=== PATIENT | male | born 1955 | race Caucasian/White ===

== ENCOUNTER 2019-05-25 01:51 | Emergency (ER) | payer OTHER ==
[~2019-05-25] VITALS: Ht 172.7 cm; Wt 70.3 kg
[2019-05-25 02:05] VITALS: BP 122/82
[2019-05-25] MEDS ORDERED: BACTRIM DS TAB1 EAC1 ORAL (02:39)
[2019-05-25] MEDS ORDERED: HYDROCODON-ACE1 EA15 ORAL (02:39)
--- NOTE | 2019-05-25 02:39 | Emergency Room Report ---
History of Present Illness General Chief Complaint: General Complaint Source: Patient Present Illness HPI Is a 64-year-old male who is right-hand dominant. He presents with chief complaint of right finger swelling and injury. He was working the garden yesterday. He said that something may have bitten him or he stuck on something. He noticed a small blister to the dorsum of his right ring finger. Today got more swollen he went to urgent care. He was placed on Keflex. They try to get the ring out but it was unsuccessful. He was told to go the ER because urgent care did not have any ring cutter. Patient did go to the ER. He took his antibiotics. He woke up tonight fingers more swollen and more blistering. No purulent discharge. Denies any fever chills. Pain is 8 out of 10. Worse with movement. No other complaint. Allergies: Coded Allergies: No Known Allergies (Unverified , 05/25/19) Patient History Past Medical History: see triage record, old chart reviewed Past Surgical History: none Pertinent Family History: none Social History: Denies: smoking Immunizations: other Reviewed Nursing Documentation: PMH: Agreed; PSxH: Agreed Nursing Documentation-PM Past Medical History: No Stated History Review of Systems Eye: Denies: eye pain, blurred vision ENT: Denies: ear pain, nose congestion, throat swelling Respiratory: Denies: cough, shortness of breath Cardiovascular: Denies: chest pain, palpitations Gastrointestinal: Denies: abdominal pain, diarrhea, nausea, vomiting Musculoskeletal: Reports: joint swelling; Denies: back pain, joint pain Skin: Denies: rash Neurological: Denies: headache, numbness Endocrine: Denies: increased thirst, increased urine Hematologic/Lymphatic: Denies: easy bruising All Other Systems: negative except mentioned in HPI Physical Exam Vital Signs Date Time Temp Pulse Resp B/P (MAP) Pulse Ox O2 Delivery O2 Flow Rate FiO2 05/25/19 01:58 98.1 84 16 125/82 (96) 98 Room Air 05/25/19 02:05 98 Vitals normal Sp02 EP Interpretation: reviewed, normal General Appearance: well appearing, no apparent distress, alert Head: normocephalic, atraumatic Eyes: bilateral eye PERRL, bilateral eye EOMI ENT: hearing grossly normal, normal pharynx Neck: full range of motion, supple, no meningismus Respiratory: chest non-tender, lungs clear, normal breath sounds Cardiovascular #1: regular rate, rhythm, no murmur Gastrointestinal: normal bowel sounds, non tender, no mass, no organomegaly, no bruit, non-distended Musculoskeletal: back normal, normal range of motion, gait/station normal, swelling - Right ring finger: On the proximal phalanx there is a small blood blister and ecchymosis and swelling. It extend to that PIP joint. He has full range of motion of the PIP joint and DIP joint. Sensation normal. Psychiatric: mood/affect normal Procedures Additional Procedure Procedure Narrative Procedure: Foreign body removal Indication: Stricture of finger from ring Description: With a ring cutter, I cut the 2 edges of the ring. Was able to remove the ring without any problem. Patient told procedure without any problem. No complication. Medical Decision Making Diagnostic Impression: Primary Impression: Cellulitis of finger of right hand ER Course Patient presents with swelling in cellulitis of his right ring finger. Because of the infection it caused soft tissue swelling causing stricture from the ring. This may be MRSA. I will add Bactrim to his regimen. No evidence of necrotizing fasciitis or deep abscess wound culture sent. Last Vital Signs Date Time Temp Pulse Resp B/P (MAP) Pulse Ox O2 Delivery O2 Flow Rate FiO2 05/25/19 02:05 81 18 Room Air 98 05/25/19 02:05 98.1 122/82 98 Status: improved Disposition: HOME, SELF-CARE Condition: Stable Scripts Hydrocodone/Acetaminophen 5-325* (HYDROCODONE/ACETAMINOPHEN 5-325*) 1 Each Tablet 1 TAB ORAL Q6H PRN for For Pain, #15 TAB 0 Refills Prov: Sebastien Hinkle MD 05/25/19 Trimethoprim/Sulfamethoxazole 160/800* (BACTRIM DS TABLET*) 1 Each Tablet 1 TAB ORAL Q12H, #14 TAB 0 Refills Prov: Sebastien Hinkle MD 05/25/19 Additional Instructions: Continue with your antibiotics. Take Bactrim in addition to your Keflex. Elevate hand. Ice pack to the area. Follow-up with your doctor in 2 3 days for recheck. Return if symptoms worsen. Sebastien Hinkle MD May 25, 2019 02:39
[2019-05-25] MEDS ORDERED: Clindamycin 900mg 50 ML IVPB ONE (02:45)
[2019-05-25] MEDS ORDERED: HYDROcodone/Acetamin 5/325 tab ORAL ONE (02:45)
[2019-05-25 03:10] VITALS: BP 122/82
== END 2019-05-25 03:10 | disposition home or self-care (01) ==
LOC: EMR 02:28
DX: L03.113 Cellulitis of right upper limb (principal)
CPT/HCPCS: 87070; 87205; 96365; 99284; S0077